=== PATIENT | female | born 1945 | race Caucasian/White ===

== ENCOUNTER 2018-01-05 11:33 | Day surgery (SDC) | payer MEDICARE ==
[~2018-01-05 11:33] MED LIST: Buffered Lidocaine 0.9% SYRIN* 5 ML/SYR SYRINGE INTRADERM ONE; Famotidine IV* 10 MG/ML 2 ML (20 mg) IV ONE
[2018-01-05] MEDS ORDERED: Famotidine IV* 10 MG/ML 2 ML (20 mg) ONE (11:47)
[2018-01-05] MEDS ORDERED: fentaNYL* 50 MCG/ML 2 ML VIAL (100 MCG VIAL) ONE (12:50)
[2018-01-05] MEDS ORDERED: Midazolam* 1 MG/ML 5 ML VIAL (5 MG) ONE (12:51)
[2018-01-05] MEDS ORDERED: Dexamethasone IV* 4 MG/ML 1 ML (4 MG) ONE (13:01)
[2018-01-05] MEDS ORDERED: Propofol* 10 MG/ML 20 ML BTL IV PUSH ONE (13:01)
[2018-01-05] MEDS ORDERED: Lidocaine 2% PF * 5 ML VIAL ONE (13:01)
[2018-01-05] MEDS ORDERED: Succinylcholine* 20 MG/ML 10 ML VIAL ONE (13:01)
[2018-01-05] MEDS ORDERED: Ondansetron INJ* 2 MG/ML VIAL ONE (13:01)
[2018-01-05] MEDS ORDERED: DiMENhydriNATE IV* 50 MG/ML VIAL IV PUSH PRN (14:08)
[2018-01-05] MEDS ORDERED: Naloxone* 0.4 MG/ML 1 ML VIAL IV PRN (14:08)
[2018-01-05] MEDS ORDERED: Levalbuterol 0.63MG/3ML NEB* UNIT OF USE INH PRN (14:08)
[2018-01-05] MEDS ORDERED: Acetaminophen TAB* 325 MG PO PRN (14:08)
[2018-01-05 15:51] VITALS: BP 121/63
--- NOTE | 2018-01-06 03:09 | OP ---
DATE OF OPERATION: 01/05/18 - [facility] DATE OF : 41 SURGERY PERFORMED BY: Kenia Moran MD ANESTHESIA: General anesthesia. ANESTHESIOLOGIST: Dr. Rizvi. PREOPERATIVE DIAGNOSIS: Recently diagnosed lung cancer. OPERATIVE PROCEDURE: Bronchoscopy with endobronchial ultrasound guided fine- needle aspiration from station R4, station 7, station L4, L10 lymph nodes for lung cancer staging. DESCRIPTION OF PROCEDURE: Informed consent was obtained from the patient prior to the procedure after all the risks and benefits were thoroughly explained. The patient was scheduled for staging endobronchial ultrasound-guided fine needle aspiration for recently diagnosed lung cancer. The patient was intubated with size 8.5 endotracheal tube prior to the procedure. A flexible Olympus bronchoscope was inserted through ET tube for airway inspection. ET tube positioning was confirmed to be 3 cm above the level of chau. Bronchoscope was then advanced into the right bronchial tree, which was then inspected. No endobronchial lesions were noted. Thin white secretions were noted and were suctioned out. Bronchoscope was then advanced into left bronchial tree. No endobronchial lesions were noted. Thin white secretions were again noted and were suctioned. Bronchoscope was then withdrawn and EBUS broncho-scope was inserted. R4 was minimally enlarged and was sampled with 2 passes. Rapid on-site evaluation did not reveal malignant cells. Station 7 lymph node was then accessed with 2 passes. Rapid on-site evaluate revealed lymphatic tissue with no malignant cells. L4 was minimally enlarged and was accessed with 3 passes. Rapid on-site evaluated revealed lymphatic tissue in the third pass. No malignant cells were noted. L10 lymph node was also minimally enlarged and was sampled with 4 passes. Rapid on-site evaluation revealed lymphatic tissue with no malignant cells. Procedure was then terminated. Bronchoscope was withdrawn. The patient was extubated and seen in recovery in optimal condition. Rest of the specimen was placed in formalin sent to lab for further examination. [id number]/[facility] #: [id number] [facility]
== END 2018-01-05 16:44 | disposition home or self-care (01) ==
LOC: OR 11:33
PROVIDERS: ATTEND Internal Medicine
DX: C34.12 Malignant neoplasm of upper lobe, left bronchus or lung (principal); J44.9 Chronic obstructive pulmonary disease, unspecified; I34.0 Nonrheumatic mitral (valve) insufficiency; R00.2 Palpitations; E78.5 Hyperlipidemia, unspecified; Z87.891 Personal history of nicotine dependence; M19.90 Unspecified osteoarthritis, unspecified site; M81.0 Age-related osteoporosis without current pathological fracture; F32.9 Major depressive disorder, single episode, unspecified
CPT/HCPCS: 88172; 88173; 88177; J0330; J1100; J2250; J2405; J2704; J3010

== ENCOUNTER 2018-08-03 15:12 | Inpatient (IN) | payer MEDICARE ==
[2018-08-03] MEDS ORDERED: NS 0.9% 1000 ML** 1,000 ML IV ONE ×2 (15:29→17:19)
--- OUTSIDE RECORDS SUMMARY | 2018-08-03 15:34 | XMS REPORT | Continuity of Care Document ---
:1945 External Reference #:[id number] Author Name Fanny Morgan Care Team Providers Name Role Phone Martín Muse MD Primary Care Physician Unavailable Payers Date Identification Numbers Payment Provider Subscriber Expires: 2017 Policy Number: [id number] Medicare Blue Ppo Janina Mg PayID: [id number] [address] [address] [place] [address] Effective: 2004 Policy Number: [id number] [facility] Blue Janina Mg Expires: 2011 PayID: [id number] [address] [address] [place] Duran [address] Policy Number: [id number] Medicare Blue Ppo Janina Mg PayID: [id number] [address] [address] [place] [address] Advance Directives Description No Information Available Problems Date Description Provider Status Onset: 07/15/2018 Closed fracture of right pubis Taryn Gregg M.D. Active Family History Date Family Member(s) Observation Comments : (age 76 Father due to Cancer, possible heart Years) Lung disease-pt unsure of details : (age 72 Mother due to Cancer, Years) Colon Siblings None Social History Type Date Description Comments Sex Unknown Marital Status Lives With Occupation Retired Tobacco Use Start: Unknown End: Former Cigarette Smoker Smoked 1 ppd from Unknown age 15 until 1977 Smoking Status Reviewed: 07/15/18 Former Cigarette Smoker Smoked 1 ppd from age 15 until 1977 ETOH Use Occasionally consumes alcohol Tobacco Use Start: Unknown End: Patient is a former Unknown smoker Recreational Drug Use Denies Drug Use Exercise Type/Frequency Exercises regularly Allergies, Adverse Reactions, Alerts Description No Known Drug Allergies Medications Medication Date Status Form Strength Qnty SIG Indications Ordering Provider Hydrocodone- 06/28/ Active Tablets 5-325mg 42tabs 1 or 2 Taryn Acetaminophe 2019 tabs by charity Gregg M.DYvette every 6-8 hours as needed for pain Cartia XT / Active Caps ER 24HR 120mg 100cap 1 po qd Unknown 0000 s Sertraline / Active Tablets 50mg 1 by mouth Unknown HCL 0000 every day Combivent / Active Aerosol 20-100mcg/ 1 puffs 4 Unknown Respimat 0000 Act times daily as needed Bupropion / Active Tablets ER 150mg 1 by mouth Unknown HCL ER (SR) 0000 12HR every day Aleve / Active Unknown 0000 Percocet 09/22/ Hx Tablets 5-325mg 60tabs 1 PO Q4H Nithin Maurer 2007 - prn Zupruk, M.D. 2010 Wellbutrin 07/28/ Hx Tablets 150mg 1 PO qd Brandt SR 2006 - Jluis Caceres, M.D. 2016 Spiriva 01/27/ Hx Capsules 18McG qd Brandt Handihaler 2005 - Jluis Caceres, .D. 2007 Albuterol 01/27/ Hx Aerosol 90mcg/Dose 2 Puffs Brandt Inhalation 2005 - qid prn Jluis Caceres, M.D. 2017 Wellbutrin 10/27/ Hx Tablets 300mg Once qd Brandt XL 2005 - Jluis Caceres, M.D. 2007 Zoloft 10/27/ Hx Tablets 50mg 45tabs qd Brandt 2005 - Jluis Caceres, M.D. 2017 Nasacort Aq 10/27/ Hx Suspension 55mcg/Actu as Brandt Intranasal 2005 - ation Directed Jluis Caceres, [place] M.D. 2010 Combivent 10/27/ Hx Aerosol 18mcg;103m 2 puffs Brandt Inhalation 2005 - cg/Actuati qid prn Jluis Caceres, M.D. 2016 Psorcon 10/27/ Hx Cream 0.05% bid prn Brandt 2005 - Jluis Caceres, MMonika 2010 Calcium With 10/27/ Hx Tablets 1 tablet Brandt Harrison 2005 - po qd Jlius Caceres, Monika 2010 Cardizem CD 10/27/ Hx Capsules 120mg 30caps 1 PO qd Brandt 2005 - Jluis Caceres, Monika 2010 Tramadol HCL / Hx Tablets 50mg 120tab qid prn Unknown 0000 - s 2017 Wellbutrin / Hx Tablets ER 150mg 1 by mouth Unknown XL 0000 - 24HR every day 2017 Calcium 600 / Hx Tablets 600mg 1 by mouth Unknown 0000 - bid with 2017 Vitamin D3 / Hx Capsules 1000Unit 1 by mouth Unknown High Potency 0000 - every day 2017 Zoloft / Hx Tablets 50mg 1 by mouth Unknown 0000 - every day 2017 Cardizem / Hx Tablets 120mg 1 by mouth Unknown 0000 - every day 2017 Medications Administered in Office Medication Date Status Form Strength Qnty SIG Indications Ordering Provider Technetium TC Administered Injection Raul Adamson M.D. Tetrofosmin, Per Unit Dose Up To 40 Millicuries Immunizations Description No Information Available Vital Signs Date Vital Result Comment 07/15/2018 1:06pm Height 66 inches 5'6" Weight 116.00 lb Heart Rate 84 /min BP Systolic 110 mmHg BP Diastolic 70 mmHg BMI (Body Mass Index) 18.7 kg/m2 06/28/2018 2:04pm Height 66 inches 5'6" Weight 116.50 lb Heart Rate 90 /min BP Systolic 112 mmHg BP Diastolic 60 mmHg Respiratory Rate 18 /min Body Temperature 98.4 F Pain Level 10 BMI (Body Mass Index) 18.8 kg/m2 04/13/2018 9:58am Height 66 inches 5'6" Weight 112.00 lb Heart Rate 88 /min BP Systolic Sitting 114 mmHg BP Diastolic Sitting 70 mmHg Respiratory Rate 14 /min O2 % BldC Oximetry 98 % BMI (Body Mass Index) 18.1 kg/m2 01/26/2018 12:44pm Height 66 inches 5'6" Weight 118.00 lb Heart Rate 62 /min BP Systolic 150 mmHg BP Diastolic 90 mmHg BP Systolic Sitting 124 mmHg lue reg cuff BP Diastolic Sitting 78 mmHg lue reg cuff BP Systolic Standing 130 mmHg BP Diastolic Standing 80 mmHg Respiratory Rate 18 /min BMI (Body Mass Index) 19.0 kg/m2 01/13/2018 9:17am Height 66 inches 5'6" Weight 116.25 lb Heart Rate 64 /min BP Systolic Sitting 120 mmHg BP Diastolic Sitting 64 mmHg Respiratory Rate 16 /min O2 % BldC Oximetry 96 % at rest on room air BMI (Body Mass Index) 18.8 kg/m2 12/22/2017 10:21am Height 66 inches 5'6" Weight 118.00 lb Heart Rate 76 /min BP Systolic Sitting 128 mmHg BP Diastolic Sitting 68 mmHg Respiratory Rate 14 /min O2 % BldC Oximetry 97 % BMI (Body Mass Index) 19.0 kg/m2 Neck Circumference in inches 12 08/20/2011 12:59pm Weight 121.00 lb Heart Rate 74 /min BP Systolic 110 mmHg BP Diastolic 70 mmHg 07/14/2011 4:33pm Height 65 inches 5'5" Weight 116.00 lb Heart Rate 88 /min BP Systolic Sitting 124 mmHg BP Diastolic Sitting 72 mmHg BMI (Body Mass Index) 19.3 kg/m2 04/02/2011 2:49pm Height 65 inches 5'5" Weight 117.00 lb Heart Rate 120 /min BP Systolic Sitting 124 mmHg BP Diastolic Sitting 70 mmHg BMI (Body Mass Index) 19.5 kg/m2 07/28/2006 10:58am Height 65 inches 5'5" Weight 136.00 lb Heart Rate 67 /min BP Systolic Sitting 100 mmHg L BP Diastolic Sitting 70 mmHg L BP Systolic Standing 94 mmHg L BP Diastolic Standing 50 mmHg L BMI (Body Mass Index) 22.6 kg/m2 01/27/2006 9:42am Height 65 inches 5'5" Weight 138.00 lb Heart Rate 75 /min BP Systolic Sitting 104 mmHg BP Diastolic Sitting 70 mmHg BP Systolic Standing 98 mmHg BP Diastolic Standing 70 mmHg BMI (Body Mass Index) 23.0 kg/m2 10/28/2005 10:15am Height 65 inches 5'5" Weight 136.00 lb Heart Rate 68 /min BP Systolic Sitting 110 mmHg R BP Diastolic Sitting 70 mmHg R BP Systolic Standing 100 mmHg R BP Diastolic Standing 60 mmHg R BMI (Body Mass Index) 22.6 kg/m2 Results Test Date Facility Test Result H/L Range Note Laboratory test 01/05/2018 [facility] Cytology SEE RESULT [address] [place] [address] [phone] Laboratory test 12/07/2017 [facility] Cytology SEE RESULT [address] [address] [phone] Lung Cancer 12/07/2017 [facility] LNGPR Result See Comment [address] [place] [address] [phone] LNGPR Result See Comment 4 LNGPR Interpretation See Comment 5 L[facility] Additional Information See Comment 6 LNGPR Specimen Cells LNGPR Tissue Id [id number] LNGPR Released By See Comment 7 Immunofixation 06/23/2011 [facility] Albumin 2.85 GM/DL Low 3.0-4.35 (Electro) [place] [address] [phone] Alpha 1 0.23 GM/DL 0.09-0.33 Alpha 2 0.95 GM/DL 0.59-1.18 Beta 0.73 GM/DL 0.68-1.02 Gamma 1.04 GM/DL 0.76-1.60 Albumin % 49.1 % 46-63 Alpha 1 % 4.0 % 1.2-5.3 Alpha 2 % 16.4 % 9-17 Beta % 12.6 % 10-16 Gamma % 17.9 % 12-22 A/G Ratio 1.0 0.9-2 Total Protein 5.8 GM/DL Low 6.2-8.1 Spep Comments (SEE NOTE) 8 Serum Immunofixation (SEE NOTE) 9 Xray 10/20/2007 [facility] X-Ray TSP <pending> [place] [address] [phone] Laboratory test 02/10/2007 [facility] CPK (Creatine 109 U/L 0 -[address] Kinase) [place] [address] [phone] C Reactive Protein < 0.5 mg/dL Less Than 0.5 Rheumatoid Factor < 20.0 IU/mL Less Than 20 Erythrocyte Sed Rate 10 MM/HR 0-30 Angle 02/10/2007 [facility] Antinuclear AB 1:[address] [place] [address] [phone] Antinuclear AB POSITIVE Abnormal Negative Angle Pattern SPECKLED Abnormal 10 Laboratory test 02/10/2007 [facility] Genital FEW [BETA [address] Culture STREP <[place] [address] NOTE> [phone] GC/Chlamydia Dna 02/10/2007 [facility] CHL By NEGATIVE Negative [address] [place] [address] [phone] GC By Aptima NEGATIVE Negative 13 1 SEE RESULT BELOW Name: JANINA MG : [address]: Kenia Moran MD Acct: [id number] Unit: [id number] AGE: 72 Location: OR Re01/05/18 SEX: F Status: PRESTON MYLES SPEC: [id number] JUNG: 01/05/18-[address] [facility] [address]: Kenia Moran MD REQ: [id number] RECD: 01/05/18-2027 STATUS: SOUT _ ORDERED: FNA-IMG GUID BX/4, CY ADEQ-ADDL P/3, CYTO ADEQ-1ST P/4 FINAL DIAGNOSIS 1. Lymph node, R4, Endobronchial ultrasound guided fine needle aspiration: --Benign bronchial epithelium and lymphoid tissue. --No evidence of metastatic malignancy identified. 2. Lymph node, Station 7, Endobronchial ultrasound guided fine needle aspiration: --Benign bronchial epithelium and lymphoid tissue. --No evidence of metastatic malignancy identified. 3. Lymph node, L4, Endobronchial ultrasound guided fine needle aspiration: --Benign bronchial epithelium and lymphoid tissue. --No evidence of metastatic malignancy identified. 4. Lymph node, L10, Endobronchial ultrasound guided fine needle aspiration: --Benign bronchial epithelium and lymphoid tissue. --No evidence of metastatic malignancy identified. For parts 1-4, a cell block was prepared in the evaluation of this specimen. Smears and cell block reveal similar findings. #1. LYMPH NODE - ENDOBRONCHIAL US GUIDED FINE NEEDLE ASPIRATION R4, #2. LYMPH NODE - ENDOBRONCHIAL US GUIDED FINE NEEDLE ASPIRATION STATION 7, #3. LYMPH NODE - ENDOBRONCHIAL US GUIDED FINE NEEDLE ASPIRATION L4, #4. LYMPH NODE - ENDOBRONCHIAL US GUIDED FINE NEEDLE ASPIRATION L10 CONTINUED ON NEXT PAGE DEPARTMENT OF PATHOLOGY, [address] [place] [address] Michel Agustin M.D. Director [facility] # [id number] RUN DATE: 01/06/18 [facility] LAB LIVE PAGE 2 Patient: JANINA MG Roscoe [id number] (Continued) CLINICAL HISTORY (Continued) CLINICAL HISTORY Recent history of left lung adenocarcinoma. Breast cancer, lump removed. 1. R4 lymph node. 2. Station 7 lymph node. 3. L4 lymph node. 4. L10 lymph node. IMMEDIATE INTERPRETATION 1. Pass 1-adequate, pass 2-inadequate. 2. Pass 1-inadequate, pass 2-adequate, pass 3-inadequate. 3. Pass 1-adequate, pass 2-3 inadequate. 4. Pass 1-inadequate, pass 2-inadequate, pass 3-additional material. GROSS DESCRIPTION 1. Endobronchial ultrasound guided fine needle aspiration x 2 passes, 2 alcohol fixed slides and needle rinse in formalin for cell block. 2. Endobronchial ultrasound guided fine needle aspiration x 3 passes, 3 alcohol fixed slides and needle rinse in formalin for cell block. 3. Endobronchial ultrasound guided fine needle aspiration x 3 passes, 5 alcohol fixed slides and needle rinse in formalin for cell block. 4. Endobronchial ultrasound guided fine needle aspiration x 3 passes, 4 alcohol fixed slides and needle rinse in formalin for cell block. Signed by and Reported on: Jojo Hernandez MD 01/06/18 1225 END OF REPORT DEPARTMENT OF PATHOLOGY, [address] [place] [address] Michel Agustin M.D. Director [facility] # [id number] 2 SEE RESULT BELOW Name: JANINA MG : [address]: Julia Kohli [employer] Acct: [id number] Unit: [id number] AGE: 72 Location: Re12/07/17 SEX: F Status: REG REF SPEC: [id number] JUNG: 12/07/17-[address] [facility] [address]: Julia Kohli [employer] REQ: [id number] RECD: 12/07/17 STATUS: VERN CARSON DR: Francisco J Aleman MD _ ORDERED: FNA-IMG GUID BX, LEVEL 4, CYTO ADEQ-1ST P, IMMUNO-FIRST, IMMUNO- ADDL, IMMUNO-QUANT/2 Lung Panel with Rearrangement Tumor has been performed at [place], [place]. The testing reveals: Received: 14 Dec 2017 16:36 Reported: 31 Dec 2017 09:39 Result Summary: NO ALTERATIONS IDENTIFIED Result Provided diagnosis: Adenocarcinoma involving lung No reportable somatic alterations were identified within the tested genes including ALK, BRAF, EGFR, ERBB2, HRAS, KRAS, MET, and NRAS (i.e. specimen is ALK, BRAF, EGFR, ERBB2, HRAS, KRAS, MET, and NRAS wild-type). No reportable fusions were identified involving the ALK, RET, ROS1, or NTRK1 genes. Interpretation See note [1] below. ASSOCIATIONS BETWEEN GENE MUTATIONS/REARRANGEMENTS AND LUNG CANCER Current data suggests that the efficacy of targeted therapies in patients with non-small cell lung cancer is limited to tumors with mutations or rearrangements in certain genes. Thus, the absence of a detectable mutation and rearrangement within this tumor suggests that targeted therapies to the listed genes may have limited therapeutic value for this patient if the primary origin of the tumor is lung (1-7). REFERENCES 1. Mol Diagn. 2013 Nov;15(4):415-53 (PMID 36105334) 2. Oncologist. 2016 Oct;21(6):684-91 (PMID 30452692) 3. Lancet Oncol. 2016 September;17(5):642-50 (PMID 34833337) 4. Lancet Oncol. 2016 Nov;17(7):984-93 (PMID 86251044) 5. Cancer Discov. 2015 Dec;5(8):842-9 (PMID 20246698) 6. Cancer Discov. 2014;5(8):850-9 (PMID 37995514) 7. Kasandra. Med. 2013 Mar;19(11):1469-43 (PMID 96833039) CONTINUED ON NEXT PAGE DEPARTMENT OF PATHOLOGY, [address] [place] [address] Michel Agustin M.D. Director [facility] # [id number] RUN DATE: 01/03/18 [facility] LAB LIVE PAGE 2 Patient: JANINA MG [id number] (Continued) ADDENDUM (Continued) ADDITIONAL INFORMATION Microscopic examination was performed by a pathologist to identify areas of tumor for enrichment by macrodissection. Next generation sequencing was performed to test for the presence of a mutation within targeted regions of the following genes: EGFR , BRAF, KRAS, HRAS, NRAS, ALK, ERBB2, and MET (exon 14 skipping mutations only). Next generation sequencing was performed to test for the presence of a rearrangement/fusion involving the ALK, RET, ROS1 or NTRK1 genes. Mutation nomenclature is based on build GRCh37 (hg19). Rearrangement nomenclature is based on a custom reference sequence using GRCh37 (hg19). For details about gene reference transcripts (GenBank accession numbers) and additional information about this test, see [email or web address] (Test ID LNGPR). CLINICAL CORRELATIONS Test results should be interpreted in context of clinical findings, tumor sampling, histopathology, and other laboratory data. If results obtained do not match other clinical or laboratory findings, please contact the laboratory for possible interpretation. Misinterpretation of results may occur if the information provided is inaccurate or incomplete. This test cannot differentiate between somatic and germline alterations. Additional testing may be necessary to clarify the significance of results if there is a potential hereditary risk. The presence or absence of a mutation or fusion may not be predictive of response to therapy in all patients. TECHNICAL LIMITATIONS This test does not detect large insertions, deletions, or duplications or genomic copy number variants (such as amplification). This assay has been shown to detect >99% of single base substitutions and >99 % of deletions/insertions (up to 50 bp) at >5% allele frequency, respectively. A negative (wild type) result does not rule out the presence of a mutation or rearrangement resulting in a targeted fusion that may be present but below the limits of detection of this assay. The analytical sensitivity of this assay is 5% with a minimum coverage of 100X for mutations and 5% with a minimum of 30 targeted fusion reads for fusions. Rare polymorphisms may be present that could lead to false negative or false positive results. CONTINUED ON NEXT PAGE DEPARTMENT OF PATHOLOGY, [address] [place] [address] Michel Agustin M.D. Director [facility] # [id number] RUN DATE: 01/03/18 [facility] LAB LIVE PAGE 3 Patient: JANINA MG [id number] (Continued) ADDENDUM (Continued) Additional Information CLINICAL TRIALS Possible clinical trials of benefit for this patient can be found at the following sites: 1) ClinicalTrials.gov:www.clinicaltrials.gov/ct2/search/advanced 2) [facility]: [email or web address]/research/clinical-trials/ 3) National Cancer Olar:www.cancer.gov/clinicaltrials/search Specimen: Cells Tissue ID: [id number] Released By Frida Steward M.D. Addendum Signed (signature on file) Michel Agustin MD 1234 FINAL DIAGNOSIS Left lower lung, CT-guided fine needle aspiration: -- Adenocarcinoma of primary lung origin; see comment. COMMENT: A cell block was prepared in the evaluation of this specimen. Smears and cell block reveal similar findings. Immunohistochemical stains, with appropriately reacting controls, were performed with the following results: TTF-1 positive ER negative (0%) PDL-1 negative (0%); cell block scant, may consider repeat on excision specimen ALK negative; cell block scant CONTINUED ON NEXT PAGE DEPARTMENT OF PATHOLOGY, [address] [place] [address] Michel Agustin M.D. Director [facility] # [id number] RUN DATE: 01/03/18 [facility] LAB LIVE PAGE 4 Patient: JANINA MG [id number] (Continued) SPECIMEN COMMENTS (Continued) Molecular studies are pending on air dried material and the results will be reported in an addendum. Dr. Agustin reviewed this case in intradepartmental consultation and agrees with the diagnosis. LUNG LEFT - CT GUIDED LEFT LUNG FINE NEEDLE ASPIRATION CLINICAL HISTORY Left lower lung nodule. History of breast cancer 2003. IMMEDIATE INTERPRETATION All passes-adequate GROSS DESCRIPTION CT Guided, fine needle aspiration x 4 passes with 1 Alcohol fixed slide(s), 6 Air dried slide(s) needle rinse in formalin for cell block. Signed by and Reported on: Jojo Hernandez MD 12/09/17 1038 END OF REPORT DEPARTMENT OF PATHOLOGY, [address] [place] [address] Michel Agustin M.D. Director [facility] # [id number] 3 RESULT: NO ALTERATIONS IDENTIFIED 4 Provided diagnosis: Adenocarcinoma involving lung No reportable somatic alterations were identified within the tested genes including ALK, BRAF, EGFR, ERBB2, HRAS, KRAS, MET, and NRAS (i.e. specimen is ALK, BRAF, EGFR, ERBB2, HRAS, KRAS, MET, and NRAS wild-type). No reportable fusions were identified involving the ALK, RET, ROS1, or NTRK1 genes. 5 ASSOCIATIONS BETWEEN GENE MUTATIONS/REARRANGEMENTS AND LUNG CANCER Current data suggests that the efficacy of targeted therapies in patients with non-small cell lung cancer is limited to tumors with mutations or rearrangements in certain genes. Thus, the absence of a detectable mutation and rearrangement within this tumor suggests that targeted therapies to the listed genes may have limited therapeutic value for this patient if the primary origin of the tumor is lung (1-7). REFERENCES 1. Mol Diagn. 2013 Nov;15(4):415-53 (PMID 09160160) 2. Oncologist. 2016 Oct;21(6):684-91 (PMID 26285964) 3. Lancet Oncol. 2016 September;17(5):642-50 (PMID 21368302) 4. Lancet Oncol. 2016 Nov;17(7):984-93 (PMID 46794936) 5. Cancer Discov. 2014;5(8):842-9 (PMID 33035269) 6. Cancer Discov. 2014;5(8):850-9 (PMID 59652247) 7. Kasandra. Med. 2013 Mar;19(11):1469-54 (PMID 11171990) ADDITIONAL INFORMATION Microscopic examination was performed by a pathologist to identify areas of tumor for enrichment by macrodissection. Next generation sequencing was performed to test for the presence of a mutation within targeted regions of the following genes: EGFR, BRAF, KRAS, HRAS, NRAS, ALK, ERBB2, and MET (exon 14 skipping mutations only). Next generation sequencing was performed to test for the presence of a rearrangement/fusion involving the ALK, RET, ROS1 or NTRK1 genes. Mutation nomenclature is based on build GRCh37 (hg19). Rearrangement nomenclature is based on a custom reference sequence using GRCh37 (hg19). For details about gene reference transcripts (GenBank accession numbers) and additional information about this test, see [email or web address] (Test ID LNGPR). CLINICAL CORRELATIONS Test results should be interpreted in context of clinical findings, tumor sampling, histopathology, and other laboratory data. If results obtained do not match other clinical or laboratory findings, please contact the laboratory for possible interpretation. Misinterpretation of results may occur if the information provided is inaccurate or incomplete. This test cannot differentiate between somatic and germline alterations. Additional testing may be necessary to clarify the significance of results if there is a potential hereditary risk. The presence or absence of a mutation or fusion may not be predictive of response to therapy in all patients. TECHNICAL LIMITATIONS This test does not detect large insertions, deletions, or duplications or genomic copy number variants (such as amplification). This assay has been shown to detect >99% of single base substitutions and >99% of deletions/insertions (up to 50 bp) at >5% allele frequency, respectively. A negative (wild type) result does not rule out the presence of a mutation or rearrangement resulting in a targeted fusion that may be present but below the limits of detection of this assay. The analytical sensitivity of this assay is 5% with a minimum coverage of 100X for mutations and 5% with a minimum of 30 targeted fusion reads for fusions. Rare polymorphisms may be present that could lead to false negative or false positive results. TEST CLASSIFICATION This test was developed and its performance characteristics determined by [facility] in a manner consistent with CLIA requirements. This test has not been cleared or approved by the U.S. Food and Drug Administration. 6 CLINICAL TRIALS Possible clinical trials of benefit for this patient can be found at the following sites: 1) ClinicalTrials.gov: www.clinicaltrials.gov/ct2/search/advanced 2) [facility]: www.[facility]/research/clinical-trials/ 3) National Cancer Olar: www.cancer.gov/clinicaltrials/search 7 RESULT: Frida Steward M.D. Test Performed by: [address] [address] 8 HYPOALBUMINEMIA 9 NORMAL SERUM IMMUNOFIXATION ELECTROPHORETIC PATTERN NO MONOCLONAL PROTEIN DETECTED. 10 TITER TO FOLLOW 11 FEW [BETA STREP GROUP B] - SENSITIVITY NOT INDICATED WITH SCANT NORMAL URETHRAL OR GENITAL CECY BETA STREP GROUP B 12 . A negative result does not preclude the presence of a C.trachomatis or N.gonorrhoeae infection because results are dependent on adequate specimen collection, absence of inhibitors, and sufficient rRNA to be detected. Test results may be affected by improper specimen collection, improper specimen storage, technical error, or specimen mixup. . 13 . A negative result does not preclude the presence of a C.trachomatis or N.gonorrhoeae infection because results are dependent on adequate specimen collection, absence of inhibitors, and sufficient rRNA to be detected. Test results may be affected by improper specimen collection, improper specimen storage, technical error, or specimen mixup. . Procedures Date Code Description Status 01/28/2018 39977 Stress Test Completed 01/28/2018 35662 Myocardial Perfusion Imaging Tomographic (Spect) Multiple Completed Studies 01/26/2018 24598 EKG Tracing & Interpretation Completed 01/05/2018 43554 Endobronchial Ultrasound=>3 Completed 12/29/2017 03750 Diffusing Capacity Completed 12/29/2017 78215 Plethysmography Determination Lung Volumes & Per Airway Completed Resist 12/29/2017 48677 Pulmonary Function><Bronchodil Completed 07/28/2006 87813 EKG Tracing & Interpretation Completed 01/27/2006 59790 EKG Tracing & Interpretation Completed 11/11/2005 09594 Stress Test Completed 11/11/2005 81529 Stress Test Completed 11/11/2005 63580 ECHO/Stress Completed 11/03/2005 60791 Color Doppler Completed 11/03/2005 95688 Color Doppler Completed 11/03/2005 12556 Pulse Doppler & Continuous Wave Completed 11/03/2005 84806 Echocardiogram Completed 11/03/2005 33371 Echocardiogram Completed 10/28/2005 14867 EKG Tracing & Interpretation Completed 10/28/2005 22181 EKG Tracing & Interpretation Completed Encounters Type Date Location Provider Dx Diagnosis Office Visit 06/28/2018 Orthopedic Bob F S32.501A Unsp fracture of 1:30p Services Of Halina Torrez MD right pubis, init for clos fx Office Visit 04/13/2018 Pulmonology And Kenia Moran, J44.9 Chronic 10:15a Sleep Services Of obstructive [facility] pulmonary disease, unspecified 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 part of unsp bronchus or lung Office Visit 01/26/2018 Alexandro Worleyian Aniceto Z01.810 Encounter for 1:00p Cardiology Of DO Maulik preprocedural [facility] cardiovascular examination R06.02 Shortness of breath C34.12 Malignant neoplasm of upper lobe, left bronchus or lung I47.1 Supraventricular tachycardia J44.9 Chronic obstructive pulmonary disease, unspecified F41.9 Anxiety disorder, unspecified Office Visit 01/13/2018 9:30a Pulmonology And Kenia C34.12 Malignant Sleep Services Of MD Dean neoplasm of [facility] upper lobe, left bronchus or lung Office Visit 12/22/2017 11:00a Pulmonology And Kenia C34.12 Malignant Sleep Services Of MD Dean neoplasm of [facility] upper lobe, left bronchus or lung J98.4 Other disorders of lung Office Visit 08/20/2011 1:00p Rheumatology Giorgio Dave, 275.3 Metabolism Services Of Pipe Organ Technician M.D. Disorder Phosphorus 733.00 Osteoporosis Unspec 715.00 Osteoarthrosis Generalized Site Unspec Office Visit 07/14/2011 4:20p Rheumatology Giorgio Dave, 338.4 Chronic Pain Services Of Pipe Organ Technician M.D. Syndrome 733.00 Osteoporosis Unspec 275.3 Metabolism Disorder Phosphorus Office Visit 04/02/2011 3:00p Rheumatology Giorgio Dave, 338.4 Chronic Pain Services Of Pipe Organ Technician M.D. 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 Vertebrae 354.0 Carpal Tunnel Syndrome Office Visit 12/22/2007 9:30a Neurosurgery Nithin Maurer 733.13 FX Pathologic Services Of Lexus Cunningham M.D. Vertebrae 782.0 Skin Sensation Disturbance Office Visit 11/23/2007 10:00a Neurosurgery Nithin Maurer 733.13 FX Pathologic Services Of Lexus Cunningham M.D. Vertebrae 782.0 Skin Sensation Disturbance Office Visit 10/20/2007 11:30a Neurosurgery Nithin Maurer 733.13 FX Pathologic Services Of Lexus Cunningham M.D. Vertebrae Office Visit 09/30/2007 9:15a Neurosurgery Nithin Maurer 733.13 FX Pathologic Services Of Lexus Cunningham M.D. Vertebrae Office Visit 09/23/2007 3:00p Neurosurgery Nithin Maurer 922.31 Contusion Back Services Of Lexus Cunningham M.D. 733.13 FX Pathologic Vertebrae 818.0 FX Upper Limb Ill-Defined Closed Office Visit 07/28/2006 Alysha Bazzi 427.0 PSVT Paroxysmal 11:00a Fer Caceres M.D. Supraventricular Tachycardia Office Visit 01/27/2006 Alysha Bazzi 427.0 PSVT Paroxysmal 9:00a Fer Caceres M.D. Supraventricular Tachycardia 786.50 Pain Chest Unspec Office Visit 10/28/2005 Alysha Bazzi 427.61 Premature Beats 10:20a Fer Caceres M.D. Supraventricular 785.2 Murmur Cardiac Undiagnosed Plan of Treatment Future Appointment(s):08/05/2018 9:15 am - Taryn Gregg M.D. at [facility].10/12/2018 9:15 am - Kenia Moran MD at Pulmonology And Sleep Services Of [facility]07/15/2018 - Taryn Gregg M.D.S32.501D Unspecified fracture of right pubis, subsequent encounter foNew Therapy:Physical TherapyFollow up:Follow up: 3 qpxrbI62.551 Pain in right hip
--- NOTE | 2018-08-03 15:41 | ED ---
Abdominal Pain/Female - HPI Summary HPI Summary: Patient is a 72-year-old female coming from Dr. sierra office with a left-sided inguinal hernia. She states she has had a hernia for several years, but started to bulge out on Wednesday. She states this is the worst of her symptoms related to the hernia. She is known about the hernia for some time. She does endorse having a pelvic fracture from a fall on November 22 of this year. This was just 6 weeks ago. She has been on hydrocodone and states this is also caused her some constipation. She has been drinking ensure and has eaten much less over the past 6 weeks. She did eat a piece of pizza at around 1 PM today. History includes left-sided lung resection, pelvic fracture, depression, constipation. She states Dr. saleh called Dr. Sterling, surgeon, today just BUDDHIST MONK and Dr. Sterling stated just to come to the ED however was otherwise unaware of this patient. Medications include: Bupropion, sertraline, docusate. - History of Current Complaint Chief Complaint: EDGeneral Stated Complaint: POSS HERNIA PER PT Time Seen by Provider: 08/03/18 15:14 Hx Obtained From: Patient ?: No Onset/Duration: Sudden Onset Timing: Constant Severity Initially: Moderate Severity Currently: Moderate Pain Intensity: 10 Pain Scale Used: 0-10 Numeric Location: Other - inguinal Radiates: No Character: Cramping Aggravating Factor(s): Nothing Alleviating Factor(s): Nothing Associated Signs and Symptoms: Positive: Negative - Risk Factors Ectopic Risk Factor: Negative Ovarian Torsion Risk Factor: Negative Allergies/Adverse Reactions: Allergies Allergy/AdvReac Type Severity Reaction Status Date / Time Tree Nuts Allergy Hives Verified 08/03/18 15:21 PERCH FISH Allergy Severe Hives Uncoded 01/05/18 11:57 Home Medications: Home Medications Docusate CAP* [Colace Cap*] 100 mg PO BID PRN 08/03/18 [History Confirmed ] HYDROcodone/ACETAMIN 5-325 MG* [[place] 5-325 TAB*] 1 tab PO Q4HR PRN MDD 4 [History Confirmed 08/03/18] PMH/Surg Hx/FS Hx/Imm Hx Previously Healthy: Yes Endocrine/Hematology History: Denies: Hx Diabetes Cardiovascular History: Denies: Hx Hypertension, Hx Pacemaker/ICD Respiratory History: Reports: Hx Asthma - empysema, Hx Chronic Obstructive Pulmonary Disease (COPD) - empysema, Other Respiratory Problems/Disorders - COPD History: Denies: Hx Renal Disease Musculoskeletal History: Reports: Hx Arthritis, Hx Osteoporosis, Other Musculoskeletal History - osteoporosis, ? fibromyalgia Sensory History: Reports: Hx Cataracts - BILAT, Hx Contacts or Glasses Denies: Hx Hearing Aid Opthamlomology History: Reports: Hx Cataracts - BILAT, Hx Contacts or Glasses Neurological History: Reports: Hx Headaches - R/T POSSIBLE INCORRECT EYEGLASSES , Hx Migraine, Other Neuro Impairments/Disorders - LIGHT HEADED SOMETIMES Psychiatric History: Reports: Hx Anxiety - ON MEDS, Hx Depression - ON MEDS Denies: Hx Panic Disorder - Cancer History Cancer Type, Location and Year: LUNG, BREAST CA Hx Chemotherapy: No Hx Radiation Therapy: Yes - FOR BREAST CA - Surgical History Surgery Procedure, Year, and Place: hysterectomy 1997, inguinal hernia repair, L breast lumpectomy, LEFT LOWER LOBEECTOMY Jan Hx Anesthesia Reactions: No - Immunization History Hx Pertussis Vaccination: No Immunizations Up to Date: Yes Infectious Disease History: No Infectious Disease History: Denies: Traveled Outside the [place] in Last 30 Days - Social History Occupation: Unemployed Lives: With Family Alcohol Use: None Alcohol Amount: BEER 3 X WEEK AT MOST Hx Substance Use: No Substance Use Type: Reports: None Hx Tobacco Use: Yes Smoking Status (MU): Former Smoker Type: Cigarettes Amount Used/How Often: 1 CARTON WEEK Review of Systems Negative: Fever, Chills, Fatigue, Skin Diaphoresis Negative: Palpitations, Chest Pain Negative: Shortness Of Breath, Cough Positive: Abdominal Pain - left sided inguinal hernia without color or temp changes Genitourinary: Negative Positive: no symptoms reported, see HPI Musculoskeletal: Negative Skin: Negative All Other Systems Reviewed And Are Negative: Yes Physical Exam Triage Information Reviewed: Yes Vital Signs On Initial Exam: Initial Vitals Temp Pulse Resp BP Pulse Ox 99 F 90 16 133/71 98 08/03/18 15:17 08/03/18 15:17 08/03/18 15:17 08/03/18 15:17 08/03/18 15:17 Vital Signs Reviewed: Yes Appearance: Positive: Well-Appearing, Well-Nourished Skin: Positive: Warm, Skin Color Reflects Adequate Perfusion Head/Face: Positive: Normal Head/Face Inspection Eyes: Positive: EOMI, ANDREA, Conjunctiva Clear Neck: Positive: Supple, No Lymphadenopathy Respiratory/Lung Sounds: Positive: Clear to Auscultation, Breath Sounds Present Cardiovascular: Positive: RRR, Pulses are Symmetrical in both Upper and Lower Extremities Abdomen Description: Positive: Nontender, Soft, Other: - left sided inguinal discomfort with bulge without color or temperature changes Musculoskeletal: Positive: Normal, Strength/ROM Intact Neurological: Positive: Sensory/Motor Intact, Alert, Oriented to Person Place, Time, Speech Normal Psychiatric: Positive: Normal, Affect/Mood Appropriate Diagnostics - Vital Signs Vital Signs Temp Pulse Resp BP Pulse Ox 08/03/18 15:17 99 F 90 16 133/71 98 - Laboratory Result Diagrams: 08/03/18 15:42 08/03/18 15:42 Lab Statement: Any lab studies that have been ordered have been reviewed, and results considered in the medical decision making process. Abdominal Pain Fem Course/Dx - Course Course Of Treatment: On arrival to the ED, provider called Dr. Sterling, surgeon. Dr. Sterling stated she was aware of the patient coming to the ED, however advised to call surgeon on-call, Dr. Key. EKG, chest xray, labs obtained. Last PO intake 2.5 hours ago. Pelvic fx occurred 6 weeks ago and patient continues to be in intermittent pain. Inguinal hernia present x several years - this just worsenened on Wednesday and continues to worsen. Denies discoloration or temperature changes. Continues to be able to eat and drink OK prior to arrival. Discussed case with Dr. Key and SHAI Beunrostro to see patient in the ED. - Diagnoses Differential Diagnosis: Positive: Other Provider Diagnoses: Incarcerated hernia Discharge - Sign-Out/Discharge Documenting (check all that apply): Patient Departure All imaging exams completed and their final reports reviewed: Yes Patient Received Moderate/Deep Sedation with Procedure: No - Discharge Plan Condition: Stable Disposition: ADMITTED TO [facility] - Billing Disposition and Condition Condition: STABLE Disposition: Admitted to [facility]
--- NOTE | 2018-08-03 15:51 | CONSULT ---
Consult Consult: I supervised the care of the physician assistant director and I performed a history and physical on this patient. History: Painful mass in the left inguinal region came up apparently suddenly and is nonreducible. Sent from the primary care physician's office for possible incarcerated hernia. Patient has history of hernia in the same area. Recent pelvic fracture. Physical exam: Hard elliptical mass in the left inguinal region with mild erythema and surgical scar just cranial to the mass. Unable to reduce in Trendelenburg. Plan: No flow in the region on bedside ultrasound. May be a lymph node vs hernia. Laboratories pending. PA discussed case with general surgery who will decide further imaging and evaluated the bedside.
[2018-08-03 15:52] LABS: ABS Basophils 0.1 10^3/ul (0-0.2); ABS Eosinophils 0.3 10^3/ul (0-0.6); ABS Monocytes 0.7 10^3/ul (0-0.8); ABS Neutrophils 5.5 10^3/ul (1.5-7.7); ABS Nucleated RBC 0 10^3/ul; Eosinophil % 3.6 %; Hematocrit 36 % (35-47); Hemoglobin 12.2 g/dl (12.0-16.0); Lymphocyte % 13.6 %; Mean Corpuscular HGB Conc 34 g/dl (31-36); Mean Corpuscular Hemoglobin 30 pg (27-31); Mean Corpuscular Volume 88 fL (80-97); Mean Platelet Volume 8.5 fL (7.4-10.4); Nucleated Red Blood Cells % 0; Platelet Count 172 10^3/ul (150-450); Red Cell Distribution Width 14 % (10.5-15); White Blood Count 7.5 10^3/ul (3.5-10.8)
[2018-08-03 16:01] LABS: INR 0.98 (0.77-1.02)
[2018-08-03 16:31] LABS: Albumin/Globulin Ratio 1.4 (1-3); BUN/Creatinine Ratio 23.6 (8-20); Calcium 10.3 mg/dL (8.6-10.3); Globulin 2.9 g/dL (2-4); Potassium 4.1 mmol/L (3.5-5.0); Total Bilirubin 0.4 mg/dL (0.2-1.0); Total Protein 6.9 g/dL (6.4-8.9)
[2018-08-03] MEDS ORDERED: Famotidine IV* 10 MG/ML 2 ML (20 mg) IV ONE (17:07)
[2018-08-03] MEDS ORDERED: Lactated Ringers 1000 ML Bag* 1,000 ML IV SCH (18:00)
--- NOTE | 2018-08-03 18:51 | HP ---
CC: Dr. Martín Muse * ADMISSION HISTORY AND PHYSICAL: DATE OF ADMISSION: 08/03/18 The patient was seen initially in the ED. ATTENDING SURGEON: Dr. David Key.* (DICTATED BY SHAI KIM) CHIEF COMPLAINT: Left groin pain. HISTORY OF PRESENT ILLNESS: This is a 72-year-old female who had undergone prior left inguinal herniorrhaphy in 1999 (operative note from the office does indicate an open repair with mesh of left indirect inguinal hernia in 1999) with Dr. Richey. She states that she had a recurrence of the hernia a number of years ago and that it has been intermittently symptomatic. Periodically, it would bulge and cause some minor symptoms, which would be limited and the hernia would reduce itself without any intervention. Beginning on Wednesday, she felt the hernia "pop out" and thereafter she has had pain in the left groin area , which has gradually increased and at this point, has been continuous throughout the day. She does note some anorexia over the past few days, but has been able to eat some and drink. While here in the ED, she is having some dry heaving, but no actual vomiting at home. The patient has had some constipation issues in recent months. Her last bowel movement was this morning , but she described it is hard and small. She also states that that was last time she had passed flatus. She did have a single slice of pizza around 1 p.m. today. PAST MEDICAL HISTORY: Lung cancer (status post left lower lobectomy in January 2018 for a 1.6 cm primary (node negative; surgery done at [facility] ). No additional therapy). She also had a recent fall in May and sustained a right inferior ramus pelvic fracture, which did not require any intervention other than physical therapy. She has been ambulating since that time, though does use hydrocodone approximately 3 tablets per day. She has a history of COPD. Former smoker who quit in 1977. She underwent left breast lumpectomy for breast cancer followed by radiation therapy. She is treated for SVT, anxiety, and depression. Other surgery includes ELICIA with BSO for benign disease, bilateral cataract surgery. CURRENT MEDICATIONS: 1. Diltiazem 120 mg once daily. 2. Sertraline 50 mg once daily. 3. Bupropion 150 mg once daily. 4. Diphenhydramine 25 mg 2 tablets q.h.s. 5. Hydrocodone/APAP 5/325 one tablet q.6 hours (on average takes 3 tablets per day). 6. Senokot once daily. 7. Albuterol/ipratropium inhaler 1 inhalation q.6 hours p.r.n. (has not required recently). DRUG ALLERGIES: DOXYCYCLINE (GI upset), TREE NUTS and PERCH (hives). FAMILY HISTORY: Positive for colon cancer in a number of family members. Negative for anesthesia problems, bleeding or clotting disorders. SOCIAL HISTORY: The patient is . Her accompanies her. She is retired from insurance work. She is a former smoker who quit in 1977. She denies use of alcohol or other recreational drugs. REVIEW OF SYSTEMS: General: No recent constitutional symptoms or acute illnesses other than noted in the HPI and past medical history. She states that her weight is down a total of 7 to 8 pounds from last summer, but has remained stable. HEENT: She uses both upper and lower dentures. No other recent complaints. Cardiovascular: No chest pain, palpitations, history of lightheadedness. Respiratory: As above. No additions. No recent exacerbations of her COPD. Recent left lower lung surgery. GI: As above per HPI. Other than constipation, no concerning symptoms regarding the lower GI tract. Specifically, denies blood in the stool or bright red blood per rectum. : No problems reported. CONSUMER INSIGHTS INTERN: Due for mammogram. No interval problems reported. Endocrine: No diabetes or thyroid dysfunction. Neuro/Psych: History of depression and anxiety. Musculoskeletal: Recent right pelvic ramus fracture as noted above. PHYSICAL EXAMINATION GENERAL: Well-nourished, slightly built female, in no acute distress. At various points, she appears uncomfortable and at one point was having dry heaves. VITAL SIGNS: Height 5 feet 6 inches, weight 113 pounds. Temperature 99, blood pressure 133/71, pulse 90, respirations 16, room air saturation 98%. HEENT: Pupils are equal and round, reactive. Status post cataract surgery. No conjunctival pallor. Oropharynx: Full upper denture in place, otherwise edentulous. No intraoral lesions. Mucous membranes slightly dry. NECK: No lymphadenopathy, thyromegaly, or masses. LUNGS: Clear to auscultation. No rales or wheezes. HEART: Regular rate and rhythm. No murmur appreciated. ABDOMEN: There is apparently a small umbilical hernia present, though it is difficult to discern the defect. It is nontender. She has a well-healed left inguinal scar from prior herniorrhaphy. In this general area and just below, there is a wide area of mild erythema extending from the anterior iliac crest to the pubic area. There is swelling and tenderness to palpation and a firm tender, nonreducible mass. No significant findings in the right groin. The remainder of the abdomen is soft and nontender. Bowel sounds are present and normoactive. GENITALIA: Not done. RECTAL: Not done. BACK: No spinous process or CVA tenderness. EXTREMITIES: No edema. NEUROLOGICAL: Grossly intact. SKIN: Warm and dry. No suspicious rashes or lesions. LABORATORY DATA: Of note, white blood cell count 7500 with normal differential , hemoglobin 12.2, hematocrit 36. Her basic chemistries including electrolytes , BUN, and creatinine are normal. Lactic acid is normal at 0.4. IMAGING: She has not had any current imaging, though review of the CT scan of the pelvis from 06/24/18 does confirm the presence of a left inguinal hernia, apparently containing fat only, without evidence of obstruction. There was noted to be copious stool throughout the colon. IMPRESSION: Incarcerated left inguinal hernia. PLAN: Case was discussed with Dr. Key who will see the patient to confirm exam and plan. Tentatively, the patient will be taken to the OR to undergo laparoscopy, possible open reduction and repair of left inguinal hernia. SHAI KIM [id number]/[facility] #: [id number] [facility] MEDICAL CENTERHunter
[2018-08-03] MEDS ORDERED: ceFAZolin 2 GM PREMIX in ORs 2 GM/50 ML BAG IVPB ONE (21:02)
[2018-08-03] MEDS ORDERED: metroNIDAZOLE IV 500 MG/100ML* 500 MG/100 ML BAG IVPB ONE (21:07)
[2018-08-03] MEDS ORDERED: Bupivacaine 0.25% W/EPI* 10 ML SDV ONE (21:58)
[2018-08-03] MEDS ORDERED: Midazolam* 1 MG/ML 5 ML VIAL (5 MG) ONE (22:00)
[2018-08-03] MEDS ORDERED: fentaNYL* 50 MCG/ML 2 ML VIAL (100 MCG VIAL) ONE (22:18)
[2018-08-03] MEDS ORDERED: Rocuronium* 10 MG/ML VIAL ONE (22:22)
[2018-08-03] MEDS ORDERED: Ondansetron INJ* 2 MG/ML VIAL ONE (22:42)
[2018-08-03] MEDS ORDERED: Succinylcholine* 20 MG/ML 10 ML VIAL ONE (22:42)
[2018-08-03] MEDS ORDERED: Propofol* 10 MG/ML 20 ML BTL ONE (22:42)
[2018-08-03] MEDS ORDERED: DiMENhydriNATE IV* 50 MG/ML VIAL ONE (22:42)
[2018-08-03] MEDS ORDERED: Lidocaine 2% PF * 5 ML VIAL ONE (22:42)
[2018-08-03] MEDS ORDERED: Ketorolac INJ* 30 MG/ML 1 ML VIAL ONE (22:42)
[2018-08-03] MEDS ORDERED: Dexamethasone IV* 4 MG/ML 1 ML (4 MG) ONE (22:42)
[2018-08-03] MEDS ORDERED: DiMENhydriNATE IV* 50 MG/ML VIAL IV PUSH PRN (23:04)
[2018-08-03] MEDS ORDERED: oxyCODONE TAB* 5 MG TAB PO PRN (23:04)
[2018-08-03] MEDS ORDERED: HYDROmorphone INJ1* 1 MG/ML SYRINGE IV PRN (23:04)
[2018-08-03] MEDS ORDERED: Naloxone* 0.4 MG/ML 1 ML VIAL IV PRN (23:04)
[2018-08-04] MEDS ORDERED: oxyCODONE/Acetamin 5/325 MG* TAB PO PRN (00:10)
[2018-08-04] MEDS ORDERED: Ibuprofen TAB* 600 MG PO PRN (00:10)
[2018-08-04] MEDS ORDERED: Ondansetron INJ* 2 MG/ML VIAL IV PRN (00:10)
--- NOTE | 2018-08-04 00:10 | BRIEFOPN ---
Brief Operative Note - Surgery Procedures: Procedures Pre-OP Diagnoses: Incarcerated Left inguinal hernia- recurrent Post-op Diagnosis: Incarcerated femoral hernia Procedure: Laparoscopic Left inguinal hernia repair with mesh Surgeon: Yesi Asst: none Anethesia: GARRY Rizvi EBL: 50cc IVF: 900cc LR Specimen: hernia sac Drains: none
[2018-08-04] MEDS ORDERED: diPHENhydraMINE PO* 25 MG PO PRN (00:13)
[2018-08-04] MEDS ORDERED: Docusate CAP* 100 MG PO PRN (00:13)
[2018-08-04] MEDS ORDERED: HYDROcodone/ACETAMIN 5-325 MG* 1 TAB PO PRN (00:13)
[2018-08-04] MEDS ORDERED: Lactated Ringers 1000 ML Bag* 1,000 ML IV SCH (01:00)
[2018-08-04] MEDS ORDERED: Acetaminophen IV 1GM/100ML * 1,000 MG/100 ML VIAL IVPB ONE (02:00)
[2018-08-04 08:34] VITALS: BP 106/49
[2018-08-04] MEDS ORDERED: Diltiazem CD CAP* 120 MG PO SCH (09:00)
[2018-08-04] MEDS ORDERED: BuPROPion XL* 150 MG TAB.XL PO SCH (09:00)
[2018-08-04] MEDS ORDERED: Sertraline* 50 MG TAB PO SCH (09:00)
--- NOTE | 2018-08-04 10:08 | OP ---
CC: Dr. Martín Muse * DATE OF OPERATION: 08/03/18 - ROOM #331 DATE OF : 41 SURGEON: Dr. Key. BACK END ENGINEER: None. ANESTHESIOLOGIST: Dr. Rizvi. ANESTHESIA: General. PRE-OP DIAGNOSIS: Incarcerated left inguinal hernia recurrent. POST-OP DIAGNOSIS: Incarcerated femoral hernia. OPERATIVE PROCEDURE: Laparoscopic left femoral hernia repair with mesh. BLOOD LOSS: 50 cc. FLUIDS: 900 cc of crystalloid. SPECIMEN: Hernia sac. DRAINS: None. Vuong catheter placed prior to surgery and removed at the end of the procedure. DESCRIPTION OF PROCEDURE: Ms. Mg is a 72-year-old female with known groin hernia on the left, noted to be recurrent after repair from 1999, who is sent to the emergency room with complaints of groin pain and swelling by her primary care doctor's office for surgical evaluation. I discussed the case and the findings on physical exam with the patient and recommended surgical repair. I outlined the recommendation of a laparoscopic left inguinal hernia repair, possible laparoscopy, possible open repair of hernia. The patient agreed after going over the risks, benefits, alternatives. The potential complications were discussed, which include but not limited to bleeding, infection, recurrence, mesh infection, the need for additional procedures and recurrence. The patient' s questions were answered and consent was signed. She was marked and taken to the operating room. In the operating room, the patient was placed on the operating table in the supine position. Preoperative antibiotics were given. Sequential devices were placed on bilateral lower extremities. General anesthesia was induced. The patient's abdomen was clipped of hair, and prepped and draped in the standard surgical fashion. A time-out was performed. Taxis was performed at the left groin to try to reduce the hernia. Now, the patient was under general anesthesia, but this was not possible. We then made an infraumbilical incision. We deepened this down to the anterior fascia on the left. The fascia was incised and the rectus pillar retracted laterally. This allows entry into the preperitoneal plane and finger dissection was then carried out to open up this site. A 12 mm trocar was then inserted and the preperitoneal plane was allowed to insufflate to pressure of 12 mmHg. The patient tolerated the insufflation well. Laparoscope was placed and loose areolar tissue was broken up bluntly. However , during this blunt dissection a large rent was made in the peritoneum. We could now see inside the abdomen thorough this large opening and two additional 5 mm trocars were then inserted. The hernia was quickly identified. We could see both within the peritoneal area and the preperitoneal space. Once the omentum is extended into this hernia, which appeared to be in the femoral space. This was reduced and bloody, but otherwise intact and I did not resect any portion of this. Fluid also drained through the hernia sac. Next, I identified our landmarks identifying epigastric vessels, as well as Guevara's ligament. I then manually reduced the hernia sac with blunt dissection off of the area. The most distal portion of the hernia sac again was bloody and I debrided this off and sent the hernia sac as specimen. There was still a fair amount of peritoneum that came out of the defect. Lateral to the defect was the previously placed inguinal mesh that did obscure our ability to fully cover this area since this extraperitoneal space was already compromised. However, review of the femoral defect after reducing both the contents in the sac appear to be small in size as these typically are and I decided to place a plug. A large plug was then inserted into the preperitoneal space and inserted into our defect. It was placed in the appropriate position with the cone portion distal to the abdominal contents and the wider portion of this plug facing the abdominal cavity. It remained in its spacing and at this point I felt, we just needed to cover this with peritoneum, taking portion of sac laterally and peritoneum medially and superiorly. I closed the peritoneum overlying this plug mesh with a 3-0 Vicryl stitch in a running fashion. It fully obscured the side of the mesh from the intraabdominal contents and I felt confident that this would be a good coverage , as well as a good repair. We did look around back into the omentum. We suctioned out some of the blood that was at this site, but this was mostly clotted at this point. No other structures were involved and the abdomen as well as the preperitoneal space was then allowed to collapse and the trocars were removed under direct vision and the anterior fascia at the umbical port site was reapproximated with 0-Polysorb suture in a [id number] fashion and all three skin incisions were reapproximated with 4-0 Monocryl subcuticular sutures, followed by Steri-Strips and sterile dressing. The patient tolerated the procedure well and was awoken up in the OR and transferred to the PACU in stable condition. [id number]/[facility] #: [id number] MATTHEW
--- NOTE | 2018-08-04 10:52 | PN ---
Progress Note - Progress Note Date of Service: 08/04/18 Note: S: POD #1. Doing well. Minimal discomfort. Rosa Maria diet. Has passed flatus. Ambulating. O: Vital Signs - 8 hr 08/04/18 08/04/18 08/04/18 03:23 05:38 07:58 Temperature 98.1 F 97.9 F Pulse Rate 69 69 Respiratory 16 18 18 Rate Blood Pressure 106/43 99/45 (mmHg) O2 Sat by Pulse 100 100 Oximetry 08/04/18 08:26 Temperature 97.8 F Pulse Rate 73 Respiratory 16 Rate Blood Pressure 106/49 (mmHg) O2 Sat by Pulse 98 Oximetry Intake and Output Last 24 Hours 08/02/18 08/03/18 08/04/18 08/05/18 06:59 06:59 06:59 06:59 Intake Total 2000 Output Total 450 Balance 2000 -450 Weight 113 lb Intake: IV Fluids 1999 LR 1000 Output: Urine 450 Other: Estimated Blood Loss 50ml Comment Gen: sitting up in bed; appears comfortable Heart: reg Lungs: clear Abd: +BS; midline incisions clean and dry, under Tegaderm. Soft; no sig tenderness A: s/p laparoscopic repair incarcerated L femoral hernia w/ mesh P: doing well; home today; instructions reviewed. Discussed w/ Dr. Key.
--- NOTE | 2018-08-04 11:52 | DS ---
CC: Dr. Martín uMse* DATE OF ADMISSION: 08/03/2018. DATE OF DISCHARGE: 08/04/2018. ATTENDING SURGEON: Dr. David Key* (SHAI Velez dictating). HOSPITAL COURSE: Please refer to admission history and physical and operative note for details. The patient was taken to the operating room the evening of where she underwent laparoscopic repair of an incarcerated femoral hernia by Dr. Key. Her postoperative course has been uneventful and as of the morning of discharge she is afebrile with stable vital signs, tolerating oral diet and with pain well controlled with oral medications. The laparoscopic sites are clean and dry under Tegaderm dressings. Abdomen is soft with no significant tenderness. Bowel sounds are present. Instructions were reviewed regarding wound care and activity. She will resume all of her usual home medications. She will return to the office next week for follow-up. She is discharged to home in good condition. SHAI VELEZ [id number]/[facility] #: [id number] MTDD
[2018-08-04] MEDS ORDERED: Heparin VIAL(*) 5000 UNITS/ML VIAL (FIVE THOUSAND) SUBCUT SCH (12:00)
== END 2018-08-04 12:00 | disposition home or self-care (01) | DRG 352 ==
LOC: ED 15:12 → OR 17:50 → SSU 08-04 00:10
PROVIDERS: ADMIT Surgery; ATTEND Surgery
PROC: 0YU84JZ Supplement Left Femoral Region with Synthetic Substitute, Percutaneous Endoscopic Approach (ICD-10-PCS; principal; 2018-08-04)
DX: K40.31 Unilateral inguinal hernia, with obstruction, without gangrene, recurrent (principal); K59.00 Constipation, unspecified; F41.9 Anxiety disorder, unspecified; F32.9 Major depressive disorder, single episode, unspecified; K42.9 Umbilical hernia without obstruction or gangrene; J43.9 Emphysema, unspecified; M19.90 Unspecified osteoarthritis, unspecified site; M81.0 Age-related osteoporosis without current pathological fracture; M79.7 Fibromyalgia; G43.909 Migraine, unspecified, not intractable, without status migrainosus; Z85.118 Personal history of other malignant neoplasm of bronchus and lung; Z91.81 History of falling; Z87.891 Personal history of nicotine dependence; Z85.3 Personal history of malignant neoplasm of breast; Z92.3 Personal history of irradiation; Z98.42 Cataract extraction status, left eye; Z98.41 Cataract extraction status, right eye; Z90.710 Acquired absence of both cervix and uterus; Z88.1 Allergy status to other antibiotic agents; Z88.8 Allergy status to other drugs, medicaments and biological substances; Z80.0 Family history of malignant neoplasm of digestive organs; Z90.2 Acquired absence of lung [part of]
CPT/HCPCS: 36415; 71046; 80053; 83605; 84484; 85025; 85610; 88302; 93005; 99284; A9270-GY; C1781; J0330; J0690; J1100; J1240; J1885; J2250; J2405; J2704; J3010; J3490